=== PATIENT | male | born 1950 | race Caucasian/White ===

== ENCOUNTER → 2019-04-15 | Outpatient (CLI) | payer MEDICARE ==
--- NOTE | 2019-04-15 19:54 | REP ---
Clinical: Hydrocele. Technique: Real time singh scale and color Doppler evaluation using linear high frequency transducer. Findings: The right testicle demonstrates relatively normal homogeneous echotexture and vascularity without evidence for torsion, inflammatory process or significant mass. Two complex 4 mm and 3.5 mm avascular testicular cysts with calcification are identified and likely represent age-related chronic change. Epididymis is not appreciable. No hydrocele. No varicocele. The left testicle demonstrates relatively normal homogeneous echotexture and vascularity without evidence for torsion, inflammatory process, or significant mass. 3 mm complex avascular testicular cyst with calcification is identified along with a large left-sided hydrocele containing scrotal taty. Epididymis is not appreciable. No varicocele. Right testicle measures 4.2 x 1.9 x 2.9 cm. Left testicle measures 4.4 x 2.5 x 3.2 cm. Impression: 1. Chronic age-related changes to the bilateral testicles including small complex cysts and presumed atrophic changes to the bilateral epididymi. 2. Large left hydrocele and accompanying scrotal taty. Electronically Signed by Dionte Anthony MD 04/15/2019 07:45 P
== END ==
LOC: M RAD 17:51
PROVIDERS: ATTEND Urology
DX: N43.3 Hydrocele, unspecified (principal)

== ENCOUNTER → 2019-04-17 | Outpatient (REF) | payer MEDICARE ==
[2019-04-17 12:55] LABS: AMORPHOUS SEDIMENT LARGE (NEGATIVE); APPEARANCE, URINE TURBID (CLEAR); BACTERIA, URINE AUTO NEGATIVE (NEGATIVE); BILIRUBIN, URINE AUTO NEGATIVE (NEGATIVE); BLOOD, URINE BLOOD NEGATIVE (NEGATIVE); COLOR, URINE YELLOW (YELLOW); GLUCOSE, URINE (UA) AUTO 1+ mg/dL (NEGATIVE); KETONE, URINE AUTO NEGATIVE (NEGATIVE); LEUKOCYTE ESTERASE, URINE AUTO NEGATIVE (NEGATIVE); NITRITE, URINE AUTO NEGATIVE (NEGATIVE); PROTEIN, URINE AUTO NEGATIVE (NEGATIVE); RBC, URINE AUTO 0 /HPF (0-3); SQUAMOUS EPITHELIAL CELL UR AU 1 /HPF (0-6); UROBILINOGEN, URINE AUTO 0.2 mg/dL (0.0-2.0); WBC, URINE AUTO 1 /HPF (0-3)
== END ==
LOC: M LAB REF 12:28
PROVIDERS: ATTEND Internal Medicine
DX: Z01.818 Encounter for other preprocedural examination (principal)

== ENCOUNTER → 2020-02-21 | Outpatient (CLI) | payer MEDICARE ==
[~2020-02-21] MED LIST: LEVO150T7; OMEP-218
== END ==
LOC: M LABSMTC 08:00
PROVIDERS: ATTEND Anesthesiology
DX: Z01.812 Encounter for preprocedural laboratory examination (principal); Z20.828 Contact with and (suspected) exposure to other viral communicable diseases
CPT/HCPCS: C9803; U0003

== ENCOUNTER 2020-02-26 09:55 | Day surgery (SDC) | payer MEDICARE ==
[~2020-02-26] VITALS: Ht 180.3 cm; Wt 108.9 kg
[~2020-02-26 09:55] MED LIST changes: +NS 1,000 ML IV ONE
[2020-02-26] MEDS ORDERED: LIDOCAINE 2% 100MG/5ML SDV (FOR ANES.) As Ordered ONE (10:55)
[2020-02-26] MEDS ORDERED: fentaNYL 100 MCG/2 ML INJECTION (J3010) As Ordered ONE (10:55)
[2020-02-26] MEDS ORDERED: propofoL 500 MG/50 ML VIAL As Ordered ONE (10:55)
--- NOTE | 2020-02-26 11:06 | ROOR ---
Patient Name: Pranav Palacios Procedure Date: 02/26/2020 10:50 AM Date of : 1950 Age: 69 Room: [facility] Gender: Male Note Status: Finalized Procedure: Upper Endoscopy + Biopsies Indications: Heartburn, Exclusion of Jones's esophagus Providers: Jesus Casas MD Referring MD: GERARDO LUQUE JR, MD Requesting Provider: Medicines: Monitored Anesthesia Care Complications: No immediate complications. Procedure: Pre-Anesthesia Assessment: - The heart rate, respiratory rate, oxygen saturations, blood pressure, adequacy of pulmonary ventilation, and response to care were monitored throughout the procedure. The Endoscope was introduced through the mouth, and advanced to the second part of duodenum. The upper GI endoscopy was accomplished without difficulty. The patient tolerated the procedure well. Findings: The Z-line was irregular and was found 40 cm from the incisors. Multiple biopsies were obtained with cold forceps for evaluation to rule out Jones's Esophagus randomly at the gastroesophageal junction. Localized mildly erythematous mucosa without bleeding was found in the gastric antrum. Biopsies were taken with a cold forceps for Helicobacter pylori testing. The exam of the duodenum was otherwise normal. Impression: - Z-line irregular, 40 cm from the incisors. - Erythematous mucosa in the antrum. Biopsied. - Multiple biopsies were obtained at the gastroesophageal junction. - The examination was otherwise normal. Recommendation: - Patient has a contact number available for emergencies. The signs and symptoms of potential delayed complications were discussed with the patient. Return to normal activities tomorrow. Written discharge instructions were provided to the patient. - High fiber diet. - Discharge patient to home. - Follow an antireflux regimen. - Continue present medications. - Await pathology results. - Telephone GI clinic for pathology results in 1 week. - Return to referring physician. - The findings and recommendations were discussed with the patient. Jesus Casas MD Jesus Casas MD 02/26/2020 11:05:26 AM Electronically signed by Jesus Casas MD Number of Addenda: 0 Note Initiated On: 02/26/2020 10:50 AM Estimated Blood Loss: Estimated blood loss: none.
[2020-02-26] MEDS ORDERED: ePHEDrine SULFATE 25 MG/5 ML(5MG/ML) SYRINGE As Ordered ONE (11:14)
--- NOTE | 2020-02-26 11:26 | ROOR ---
Patient Name: Pranav Palacios Procedure Date: 02/26/2020 10:51 AM Date of : 1950 Age: 69 Room: [facility] Gender: Male Note Status: Finalized Procedure: Total Colonoscopy to Cecum + Cold Snare Polypectomy + Hemoclips Indications: High risk colon cancer surveillance: Personal history of colonic polyps, Last colonoscopy: 2015 Providers: Jesus Casas MD Referring MD: GERARDO LUQUE JR, MD Requesting Provider: Medicines: Monitored Anesthesia Care Complications: No immediate complications. Procedure: Pre-Anesthesia Assessment: - The heart rate, respiratory rate, oxygen saturations, blood pressure, adequacy of pulmonary ventilation, and response to care were monitored throughout the procedure. The Colonoscope was introduced through the anus and advanced to the cecum, identified by appendiceal orifice and ileocecal valve. The colonoscopy was performed without difficulty. The patient tolerated the procedure well. The quality of the bowel preparation was excellent. Findings: The perianal and digital rectal examinations were normal. Non-bleeding internal hemorrhoids were found during retroflexion. The hemorrhoids were small and Grade I (internal hemorrhoids that do not prolapse). The mucosa vascular pattern in the rectum was locally increased. A small polyp was found at 30 cm proximal to the anus. The polyp was sessile. The polyp was removed with a cold snare. Resection and retrieval were complete. A medium polyp was found in the transverse colon. The polyp was sessile. The polyp was removed with a cold snare. Resection and retrieval were complete. To prevent bleeding after the polypectomy, one hemostatic clip was successfully placed (MR conditional). There was no bleeding at the end of the procedure. A small polyp was found in the hepatic flexure. The polyp was sessile. The polyp was removed with a cold snare. Resection and retrieval were complete. The exam was otherwise without abnormality on direct and retroflexion views. Impression: - Non-bleeding internal hemorrhoids. - Increased mucosa vascular pattern in the rectum. - One small polyp at 30 cm proximal to the anus, removed with a cold snare. Resected and retrieved. - One medium polyp in the transverse colon, removed with a cold snare. Resected and retrieved. Clip (MR conditional) was placed. - One small polyp at the hepatic flexure, removed with a cold snare. Resected and retrieved. - The examination was otherwise normal on direct and retroflexion views. - The exam was otherwise normal to the cecum. Recommendation: - Patient has a contact number available for emergencies. The signs and symptoms of potential delayed complications were discussed with the patient. Return to normal activities tomorrow. Written discharge instructions were provided to the patient. - High fiber diet. - Discharge patient to home. - Continue present medications. - Await pathology results. - Telephone GI clinic for pathology results in 1 week. - Repeat colonoscopy in 5 years for surveillance based on pathology results. - Return to referring physician. - The findings and recommendations were discussed with the patient. Jesus Casas MD Jesus Casas MD 02/26/2020 11:25:12 AM Electronically signed by Jesus Casas MD Number of Addenda: 0 Note Initiated On: 02/26/2020 10:51 AM Estimated Blood Loss: Estimated blood loss: none.
[2020-02-26 11:49] VITALS: BP 137/89
== END 2020-02-26 11:38 | disposition home or self-care (01) ==
LOC: M OPP 09:55
PROVIDERS: ATTEND Internal Medicine Gastroenterology
DX: Z12.11 Encounter for screening for malignant neoplasm of colon (principal); Z86.010 Personal history of colon polyps; R12 Heartburn; K63.5 Polyp of colon; K64.0 First degree hemorrhoids; D13.0 Benign neoplasm of esophagus; D13.1 Benign neoplasm of stomach; K22.8 Other specified diseases of esophagus; K31.89 Other diseases of stomach and duodenum; E03.9 Hypothyroidism, unspecified; Z85.46 Personal history of malignant neoplasm of prostate; Z92.3 Personal history of irradiation; F17.290 Nicotine dependence, other tobacco product, uncomplicated; Z88.1 Allergy status to other antibiotic agents; Z79.899 Other long term (current) drug therapy
CPT/HCPCS: 43239; 45385; 88305; J3010

== ENCOUNTER 2020-04-17 13:46 | Emergency (ER) | payer MEDICARE ==
[~2020-04-17] VITALS: Ht 180.3 cm; Wt 111.4 kg
[~2020-04-17 13:46] MED LIST changes: -NS 1,000 ML IV ONE
[2020-04-17] MEDS ORDERED: NS 1,000 ML IV SCH (14:01)
[2020-04-17] MEDS ORDERED: MORPHINE 4 MG/ML 1ML VIAL/SYRINGE (J2270) IV ONE ×2 (14:15→18:45)
[2020-04-17] MEDS ORDERED: ONDANSETRON 4MG/2ML VIAL IV ONE ×2 (14:15→18:45)
[2020-04-17 14:20] LABS: BASO # 0.1 10^3/uL (0.0-0.2); BASO % 0.9 % (0.0-1.0); EOS # 0.2 10^3/uL (0.0-0.5); EOS % 2.4 % (0.0-3.0); HEMATOCRIT 51.7 % (42.0-52.0); LYMPH # 2.3 10^3/uL (1.5-5.0); LYMPH % 23.3 % (24.0-44.0); MEAN CORPUSCULAR HEMOGLOBIN 32.1 pg (27.0-33.0); MEAN CORPUSCULAR HGB CONC 32.9 g/dl (32.0-36.5); MEAN CORPUSCULAR VOLUME 97.5 fl (80.0-96.0); MONO % 10.2 % (0.0-5.0); NEUTROPHILS # 6.2 10^3/uL (1.5-8.5); NEUTROPHILS % 62.5 % (36.0-66.0); PLATELET COUNT, AUTOMATED 244 10^3/uL (150-450); WHITE BLOOD COUNT 9.9 10^3/uL (4.0-10.0)
[2020-04-17 14:30] LABS: INR 0.97; PROTHROMBIN TIME 13.1 SECONDS (12.5-14.3)
[2020-04-17 14:31] LABS: PARTIAL THROMBOPLASTIN TIME 30.9 SECONDS (24.2-38.5)
--- NOTE | 2020-04-17 14:36 | REP ---
INDICATION: left sided abdominal pain, hemauria patient gives a history of prostate carcinoma. COMPARISON: Comparison CT study December 20, 2008.. TECHNIQUE: Helical scanning is acquired in 4 mm axial images were reformatted. Coronal and sagittal MPR images were generated and reviewed. Preliminary digital cell tuber machine radiograph is unremarkable. There are clips in the right mid abdomen. FINDINGS: There is moderate diffuse fatty infiltration of the liver. No focal liver lesion is seen. The spleen is unremarkable. No abnormality is noted in the gallbladder or the pancreas. Normal adrenals are seen bilaterally. There is a cyst in the posterior cortex of the left mid renal pole 2.1 cm in diameter. In addition, the left kidney shows [id number] hydronephrosis and hydroureter. The left ureter is dilated to the superior pelvis where there is a distal ureteral stone measuring 4 mm in greatest diameter. No other ureteral stone is seen. No bladder calculus is noted. Seminal vesicles are unremarkable. Prostate is not apparent question prostatectomy. Urinary bladder is intact. There are clips adjacent to the cecum which appear to reflect prior appendectomy. No retroperitoneal or pelvic mass or adenopathy is observed. No intrarenal calculus is seen. IMPRESSION: 1. Acute obstructive uropathy on the left due to a distal ureteral 4 mm calculus at the superior true pelvis level. Small left renal cyst. 2. Moderate diffuse fatty infiltration of the liver. 3. Status post prostatectomy and appendectomy. <Electronically signed by Tj Espinosa > 04/17/20 [id number]
--- NOTE | 2020-04-17 14:42 | REP ---
INDICATION: abdominal pain. COMPARISON: PA and lateral chest dated 06/30/2015. TECHNIQUE: Single portable AP view with the patient upright. FINDINGS: The lung rodriguez are clear. Cardiac size is normal for portable positioning. The kayleigh and mediastinum are unremarkable. There is an old right 7th rib fracture, unchanged. There is no free subdiaphragmatic air. IMPRESSION: No acute cardiopulmonary findings. Old right 7th rib fracture, unchanged. No free subdiaphragmatic air. <Electronically signed by Benji Nicholas > 04/17/20 [id number]
[2020-04-17 14:53] LABS: ALBUMIN 4.1 GM/DL (3.2-5.2); ALT/SGPT 95 U/L (12-78); AMYLASE 64 U/L (25-115); BILIRUBIN,DIRECT 0.1 MG/DL (0.0-0.2); BILIRUBIN,TOTAL 0.4 MG/DL (0.2-1.0); BLOOD UREA NITROGEN 18 MG/DL (7-18); CALCIUM LEVEL 8.8 MG/DL (8.8-10.2); CARBON DIOXIDE LEVEL 29 MEQ/L (21-32); CHLORIDE LEVEL 102 MEQ/L (98-107); CREATININE FOR GFR 1.23 MG/DL (0.70-1.30); GLOMERULAR FILTRATION RATE > 60.0 (>49); GLUCOSE, FASTING 136 MG/DL (70-100); LIPASE 97 U/L (73-393); POTASSIUM SERUM 3.9 MEQ/L (3.5-5.1); SODIUM LEVEL 138 MEQ/L (136-145); TOTAL PROTEIN 7.9 GM/DL (6.4-8.2)
[2020-04-17] MEDS ORDERED: MORPHINE 2 MG/ML 1ML VIAL (J2270) IV ONE ×2 (15:45→18:15)
[2020-04-17] MEDS ORDERED: KETOROLAC 30 MG/ML 1ML VIAL IV ONE (16:00)
[2020-04-17] MEDS ORDERED: NORC1TAB7 PO (16:39)
[2020-04-17] MEDS ORDERED: NORCO 5/325MG TABLET (BULK FOR ED) PO ONE (16:45)
[2020-04-17] MEDS ORDERED: PERCOCET 5MG/325MG TAB PO ONE (19:00)
[2020-04-17] MEDS ORDERED: ONDANSETRON 4 MG ORAL DISINTEGRATING TAB SL ONE (20:45)
[2020-04-17 20:47] VITALS: BP 144/85
[2020-04-18] MEDS ORDERED: CIPR-249 PO (13:26)
[2020-04-18] MEDS ORDERED: ONDA4TAB6 PO (13:28)
[2020-04-18] MEDS ORDERED: FLOM0.4C39 PO (13:57)
== END 2020-04-17 21:07 | disposition home or self-care (01) ==
LOC: M ED 13:46
DX: N23 Unspecified renal colic (principal); N13.39 Other hydronephrosis; R11.2 Nausea with vomiting, unspecified; K21.9 Gastro-esophageal reflux disease without esophagitis; E07.9 Disorder of thyroid, unspecified; F17.200 Nicotine dependence, unspecified, uncomplicated; Z88.1 Allergy status to other antibiotic agents; Z85.46 Personal history of malignant neoplasm of prostate; Z79.899 Other long term (current) drug therapy
CPT/HCPCS: 36415; 71045; 74176; 80048; 80076; 81001; 82150; 83605; 83690; 85025; 85610; 85730; 87040; 87077; 87186; 93041; 96374; 96375; 96376; 99285; J1885; J2270; J2405; Q0162

== ENCOUNTER 2020-04-18 09:48 | Emergency (ER) | payer MEDICARE ==
[~2020-04-18] VITALS: Ht 180.3 cm; Wt 120.0 kg
[~2020-04-18 09:48] MED LIST changes: +NORC1TAB7 PO
[2020-04-18] MEDS ORDERED: KETOROLAC 30 MG/ML 1ML VIAL IV ONE (10:15)
[2020-04-18] MEDS ORDERED: ONDANSETRON 4MG/2ML VIAL IV ONE (10:15)
[2020-04-18] MEDS ORDERED: NS 1,000 ML IV ONE (10:15)
[2020-04-18 10:34] LABS: BASO # 0.1 10^3/uL (0.0-0.2); BASO % 0.4 % (0.0-1.0); EOS % 0.2 % (0.0-3.0); HEMATOCRIT 49.3 % (42.0-52.0); HEMOGLOBIN 16.7 g/dl (13.5-17.5); LYMPH # 0.8 10^3/uL (1.5-5.0); LYMPH % 6.5 % (24.0-44.0); MEAN CORPUSCULAR HEMOGLOBIN 33.1 pg (27.0-33.0); MEAN CORPUSCULAR HGB CONC 33.9 g/dl (32.0-36.5); MEAN CORPUSCULAR VOLUME 97.6 fl (80.0-96.0); MONO # 1.1 10^3/uL (0.0-0.8); MONO % 8.3 % (0.0-5.0); NEUTROPHILS # 10.7 10^3/uL (1.5-8.5); NEUTROPHILS % 83.8 % (36.0-66.0); PLATELET COUNT, AUTOMATED 211 10^3/uL (150-450); RED BLOOD COUNT 5.05 10^6/uL (4.30-6.10); WHITE BLOOD COUNT 12.7 10^3/uL (4.0-10.0)
[2020-04-18 11:06] LABS: CALCIUM LEVEL 8.5 MG/DL (8.8-10.2); CREATININE FOR GFR 1.36 MG/DL (0.70-1.30); GLOMERULAR FILTRATION RATE 55.5 (>49); POTASSIUM SERUM 4.3 MEQ/L (3.5-5.1)
[2020-04-18] MEDS ORDERED: CIPROFLOXACIN 400 MG in IV 1 EA IV ONE (11:45)
[2020-04-18] MEDS ORDERED: CIPR-249 PO (13:26)
[2020-04-18] MEDS ORDERED: ONDA4TAB6 PO (13:28)
[2020-04-18 13:55] VITALS: BP 158/88
[2020-04-18] MEDS ORDERED: FLOM0.4C39 PO (13:57)
== END 2020-04-18 13:59 | disposition home or self-care (01) ==
LOC: M ED 09:48
DX: N12 Tubulo-interstitial nephritis, not specified as acute or chronic (principal); N20.1 Calculus of ureter; E03.9 Hypothyroidism, unspecified; Z85.46 Personal history of malignant neoplasm of prostate; K21.9 Gastro-esophageal reflux disease without esophagitis; Z88.1 Allergy status to other antibiotic agents; Z79.899 Other long term (current) drug therapy
CPT/HCPCS: 80048; 81001; 83605; 85025; 96365; 96375; 99284; J0744; J1885; J2405

== ENCOUNTER → 2021-05-03 | Outpatient (REF) | payer MEDICARE, BC, OTHER ==
[~2021-05-03] MED LIST changes: +CIPR-249 PO; +FLOM0.4C39 PO; +ONDA4TAB6 PO
== END ==
LOC: M LAB REF 13:56
PROVIDERS: ATTEND Physician Assistant
DX: Z51.89 Encounter for other specified aftercare (principal)

== ENCOUNTER → 2023-11-26 | Outpatient (CLI) | payer MEDICARE ==
[~2023-11-26] MED LIST changes: +OMEP-173; -OMEP-218; +ONDA-282 PO; -ONDA4TAB6 PO
== END ==
LOC: M RAD 08:45
PROVIDERS: ATTEND Nurse Practitioner Family
DX: K74.00 Hepatic fibrosis, unspecified (principal)

== ENCOUNTER → 2023-12-03 | Outpatient (REF) | payer MEDICARE ==
[2023-12-03 19:09] LABS: FERRITIN 341.2 NG/ML (10.5-307.3)
[2023-12-03 19:26] LABS: HEPATITIS B SURFACE ANTIGEN NEGATIVE (NEGATIVE)
[2023-12-03 19:47] LABS: HEPATITIS C VIRUS ABY INDEX 0.02 INDEX (<0.8)
== END ==
LOC: M LAB REF 16:50
PROVIDERS: ATTEND Internal Medicine
DX: K74.00 Hepatic fibrosis, unspecified (principal); K76.0 Fatty (change of) liver, not elsewhere classified

== ENCOUNTER → 2024-03-03 | Outpatient (REF) | payer MEDICARE ==
[2024-03-03 18:58] LABS: PERCENT SATURATION 34.4 % (19.7-50.0)
[2024-03-03 19:01] LABS: FERRITIN 292.6 NG/ML (10.5-307.3)
== END ==
LOC: M LAB REF 17:43
PROVIDERS: ATTEND Internal Medicine
DX: M25.562 Pain in left knee (principal)

== ENCOUNTER → 2024-03-26 | Outpatient (REF) | payer MEDICARE ==
[2024-03-26 13:19] LABS: PARTIAL THROMBOPLASTIN TIME 32.8 SECONDS (24.8-34.2); PROTHROMBIN TIME 13.5 SECONDS (12.5-14.5)
== END ==
LOC: M LAB REF 12:57
PROVIDERS: ATTEND Internal Medicine
DX: Z01.818 Encounter for other preprocedural examination (principal); Z79.01 Long term (current) use of anticoagulants

== ENCOUNTER → 2024-04-29 | Outpatient (REF) | payer MEDICARE | LOC: M LAB REF 16:35 | PROVIDERS: ATTEND Internal Medicine | DX: K74.00 Hepatic fibrosis, unspecified (principal); K76.0 Fatty (change of) liver, not elsewhere classified ==

== ENCOUNTER → 2024-06-05 | Outpatient (CLI) | payer MEDICARE | LOC: M RAD 06:59 | PROVIDERS: ATTEND Internal Medicine | DX: K76.0 Fatty (change of) liver, not elsewhere classified (principal); K74.00 Hepatic fibrosis, unspecified ==

== ENCOUNTER → 2024-07-15 | Outpatient (REF) | payer MEDICARE | LOC: M LAB REF 17:35 | PROVIDERS: ATTEND Internal Medicine | DX: E78.2 Mixed hyperlipidemia (principal) ==

== ENCOUNTER → 2024-08-10 | Outpatient (CLI) | payer MEDICARE | LOC: M RAD 10:19 | PROVIDERS: ATTEND Internal Medicine | DX: K74.00 Hepatic fibrosis, unspecified (principal) ==

== ENCOUNTER 2024-09-07 10:33 | Day surgery (SDC) | payer MEDICARE ==
[~2024-09-07] VITALS: Ht 180.3 cm; Wt 101.6 kg
[~2024-09-07 10:33] MED LIST changes: +ATOR1TAB21 PO; -FLOM0.4C39 PO; +METF500T13 PO; +OMEP40CA5 PO; +TAMS-18 PO
[2024-09-07] MEDS ORDERED: LIDOCAINE 2% 100MG/5ML SDV (FOR ANES.) As Ordered ONE (11:30)
[2024-09-07] MEDS ORDERED: propofoL 200 MG/20 ML VIAL As Ordered ONE (11:30)
[2024-09-07] MEDS ORDERED: fentaNYL 100 MCG/2 ML INJECTION As Ordered ONE (11:44)
[2024-09-07 12:13] VITALS: TEMP 97.8
[2024-09-07 12:36] VITALS: BP 129/79; O2SAT 95
== END 2024-09-07 12:55 | disposition home or self-care (01) ==
LOC: M OPP 10:33
PROVIDERS: ATTEND Internal Medicine Gastroenterology
DX: D12.3 Benign neoplasm of transverse colon (principal); K57.30 Diverticulosis of large intestine without perforation or abscess without bleeding; K64.0 First degree hemorrhoids; Z86.0100 Personal history of colon polyps, unspecified; K22.89 Other specified disease of esophagus; K29.50 Unspecified chronic gastritis without bleeding; K22.70 Barrett's esophagus without dysplasia; Z88.1 Allergy status to other antibiotic agents; Z79.84 Long term (current) use of oral hypoglycemic drugs; Z79.899 Other long term (current) drug therapy; F17.290 Nicotine dependence, other tobacco product, uncomplicated
CPT/HCPCS: 43239; 45385; 88305; J3010

== ENCOUNTER → 2025-01-14 | Outpatient (REF) | payer MEDICARE | LOC: M LAB REF 17:33 | PROVIDERS: ATTEND Internal Medicine | DX: K74.00 Hepatic fibrosis, unspecified (principal); K76.0 Fatty (change of) liver, not elsewhere classified ==